=== PATIENT | male | born 2000 | race Caucasian/White ===

== ENCOUNTER 2021-02-18 09:21 | Observation (INO) ==
[2021-02-18] MEDS ORDERED: ceFAZolin 2000MG 2,000 MG/15 ML SYR IV STA (10:23)
[2021-02-18] MEDS ORDERED: metroNIDAZOLE 500 MG/100 ML BAG IV STA (10:23)
[2021-02-18] MEDS ORDERED: methylPREDNISolone 125 MG/2 ML VIAL IV STA (10:28)
--- NOTE | 2021-02-18 10:39 | Emergency Department Note ---
History of Present Illness General Chief complaint: Shortness of Breath/Dyspnea Stated complaint: THROAT SWELLING Time Seen by Provider: 02/18/21 10:10 History of Present Illness Maximum Pain Intensity: 9 This 20-year-old male patient with significant past medical history of acute tonsillitis associated with mononucleosis presents to the emergency department today for evaluation of worsening swelling in his tonsils, change in his voice, and inability to swallow liquids. The patient states symptoms have been ongoing for approximately 1 week. He states he was seen here on Monday when he was diagnosed with mononucleosis. He was seen again on Monday when the ED had CT imaging of his neck to evaluate for abscess. This was negative for abscess but did show lymphadenopathy. At this time, the patient was started on clindamycin as well as prednisone. The patient states he felt better for 1 day, then this morning developed difficulty swallowing, inability to tolerate liquids, and decided to come to the emergency department for reevaluation. The patient is scheduled to see Dr. Hancock as an outpatient tomorrow at 130, but did not feel that he should wait that long due to his worsening symptoms. Patient denies any hemoptysis. No abdominal pain. No nausea, vomiting, weakness. No chest pain or dyspnea. Pt. 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 Home Medications Medication Instructions Recorded Confirmed Type famotidine 40 mg tablet (Pepcid) 40 mg PO HS #30 tab 02/14/21 02/18/21 Rx lisdexamfetamine 30 mg capsule 30 mg PO DAILY PRN 02/14/21 02/18/21 History (Vyvanse) clindamycin HCl 150 mg capsule 300 mg PO Q6H 02/16/21 02/18/21 History (Cleocin HCl) ibuprofen 200 mg tablet (Ibuprofen 200 mg PO Q6H PRN 02/16/21 02/18/21 History IB) naproxen sodium 220 mg tablet 220 mg PO Q12H PRN 02/18/21 02/18/21 History (Aleve) prednisone 20 mg tablet 20 mg PO DIRECTED 02/18/21 02/18/21 History Allergies Allergy/AdvReac Type Severity Reaction Status Date / Time hazelnut Allergy Intermediate Hives Unverified 02/18/21 10:38 Past Med/Surg History Medical History No pertinent past medical history Social History Smoking Status: Former smoker Tobacco Type: Cigarettes Feels Safe at Home: Yes Review of Systems A total of 10 systems reviewed and were otherwise negative Physical Exam Vital Signs Vital Signs - 24 hr 02/18/21 09:24 02/18/21 09:44 02/18/21 10:59 Temperature 36.8 C Temperature Source Oral Pulse Rate 107 H Respiratory Rate 20 Blood Pressure 144/76 H Blood Pressure Mean 98 Pulse Oximetry 97 Oxygen Delivery Method Room Air Room Air Room Air Sepsis Recent Fever Within 48 Hours No Sepsis New/Unexplained Change in Mental Status N/A Sepsis Action Taken by Nursing No Action Required VITALS: Vitals are noted on the nurse's note and reviewed by myself. Vital signs stable. GENERAL: This is a 20-year-old white male, in no acute distress, nondiaphoretic, well-developed well-nourished. SKIN: The skin was without rashes, erythema, edema, or bruising. There is no tenting of the skin. Capillary refill less than 2 seconds. HEAD: Normocephalic atraumatic. EARS: External auditory canals clear, tympanic membranes pearly brenner without erythema or effusion bilaterally. EYES: Conjunctivae without injection, sclerae without icterus. NOSE: Patent, turbinates without inflammation or discharge. No sinus tenderness. MOUTH: Mucous membranes moist. Tonsils are enlarged, erythematous, and exudative. 3+ tonsillar enlargement. Uvula midline. Airway patent. Tongue does not deviate. NECK: Supple without nuchal rigidity. Cervical lymphadenopathy. Cervical spine is nontender. No JVD. HEART: Regular rate and rhythm without murmurs gallops or rubs. LUNGS: Clear to auscultation bilaterally without wheezes, rales or rhonchi. No retractions or accessory muscle use. ABDOMEN: Positive bowel sounds x 4. Soft, nontender, without masses. Spleen tip palpable on examination. No guarding or rebound tenderness. MUSCULOSKELETAL: No muscle atrophy, erythema, or edema noted. Full range of motion without joint tenderness in all extremities. No tenderness to palpation. Normal gait. Strength 5/5 throughout. NEURO: Patient was alert and oriented to person place and time. No focal neurological deficits. Course Course The patient was seen and evaluated as above. Previous medical records reviewed I did consult with Dr. Hancock regarding this patient. He recommends IV antibiotics, steroids, hydration, and admission. He advises NOT to get a repeat CT scan at this time. He does not recommend procedure in this case and suspect the patient will feel better in 1 to 2 days. An order was placed for continuous cardiac monitoring. The monitor shows a sinus tachycardia at a rate of 107 bpm. I discussed the case with the ED pharmacist regarding recommendation for treatment. I discussed the case with the sporting goods sales manager. I discussed the recommendation with the patient at bedside. He was agreeable. IV access obtained, labs drawn. Patient medicated with IV cefazolin, metronidazole, Solu-Medrol. Labs reviewed by myself. I discussed the case with my attending. I discussed the case with the [facility]. They did agree to see and evaluate the patient for admission. Administered Medications Discontinued Medications Acetaminophen (Acetaminophen 1000 Mg/100 Ml Iv) 1,000 mg IV NOW STA Stop: 02/18/21 10:51 Last Admin: 02/18/21 10:56 Dose: 1,000 mg Documented by: [id number] Acetaminophen (Acetaminophen 1000 Mg/100 Ml Iv) Confirm Administered Dose 1,000 mg IV .STK-MED ONE Stop: 02/18/21 10:52 Last Admin: 02/18/21 10:59 Dose: Not Given Documented by: [id number] Cefazolin Sodium (Ancef 2000mg) 2,000 mg in 15 mls @ 3.75 mls/min IV NOW STA Stop: 02/18/21 10:26 Last Admin: 02/18/21 10:56 Dose: 3.75 mls/min Documented by: [id number] Metronidazole (Flagyl) 500 mg in 100 mls @ 100 mls/hr IV NOW STA Stop: 02/18/21 11:22 Last Infusion: 02/18/21 12:58 Dose: 0 mls/hr Documented by: [id number] Admin: 02/18/21 10:56 Dose: 100 mls/hr Documented by: [id number] Methylprednisolone (Methylprednisolone 125 Mg/2 Ml Vial) 60 mg IV NOW STA Stop: 02/18/21 10:29 Last Admin: 02/18/21 10:56 Dose: 60 mg Documented by: [id number] Medical Decision Making Differential Diagnosis Viral syndrome, strep pharyngitis, tonsillitis, mononucleosis, retropharyngeal abscess, peritonsillar abscess, otitis media, sinusitis, bronchitis, pneumonia, COVID-19, as well as other pathologies. Medical Records Attestation: I reviewed the patient's medical records. Home Medications Current Medication List: was personally reviewed by me Laboratory Data Attestation: I reviewed the patient's lab results. Mild leukocytosis of 13,000. No anemia or thrombocytopenia. Renal function and electrolytes without significant abnormality. Transaminases elevated. Procalcitonin 0.06. COVID-19 testing negative. Result diagrams: 02/18/21 11:03 02/18/21 11:03 Lab Results 02/18/21 02/18/21 02/18/21 Range/Units 11:03 11:03 11:03 WBC 13.95 H (4.8-10.8) K/uL RBC 4.68 L (4.7-6.1) M/uL Hgb 14.2 (14.0-18.0) g/dL Hct 42.1 (42-52) % MCV 90.0 (80-100) fL MCH 30.3 (25-34) pg MCHC 33.7 (32-36) g/dL RDW Std Deviation 46.3 (36.4-46.3) fL RDW Coeff of Yaquelin 14.3 (11.5-14.5) % Plt Count 256 (130-400) K/uL MPV 10.1 (7.4-10.4) fL Neutrophils % (Manual) 31.0 % Lymphocytes % (Manual) 8.6 % Reactive Lymphs % (Man) 50.0 % Monocytes % (Manual) 9.5 % Basophils % (Manual) 0.9 % Neutrophils # (Manual) 4.33 (1.4-6.5) K/uL Total Absolute Neuts 4.33 (1.4-6.5) K/uL Lymphocytes # (Manual) 1.20 (1.2-3.4) K/uL Reactive Lymphs # 6.98 K/uL Total Abs Lymphocytes 8.18 H (1.2-3.4) K/uL Monocytes # (Manual) 1.32 H (0.11-0.59) K/uL Basophils # (Manual) 0.12 (0-0.2) K/uL Toxic Vacuolation 1+ Rouleaux 1+ Sodium 140 (136-145) mmol/L Potassium 3.9 (3.5-5.1) mmol/L Chloride 106 (98-107) mmol/L Carbon Dioxide 26 (21-32) mmol/L Anion Gap 8.0 (3-11) BUN 8 (7-18) mg/dl Creatinine 0.88 (0.6-1.4) mg/dl Est Cr Clr Drug Dosing 145.7 ml/min Est GFR ( Amer) 142.3 ml/min Est GFR (Non-Af Amer) 122.8 ml/min BUN/Creatinine Ratio 9.1 L (10-20) Glucose 93 (70-99) mg/dl Calcium 9.0 (8.5-10.1) mg/dl Total Bilirubin 1.1 H (0.2-1) mg/dl AST 111 H (15-37) U/L ALT 433 H (12-78) U/L Alkaline Phosphatase 230 H (45-117) U/L Total Protein 8.5 H (6.4-8.2) gm/dl Albumin 3.9 (3.4-5.0) gm/dl Globulin 4.6 H (2.5-4.0) gm/dl Albumin/Globulin Ratio 0.8 L (0.9-2) Procalcitonin 0.06 (0-0.5) ng/ml Specimen Hemolysis COVID-19 Eval Order SARS-CoV-2 (PCR) (Negative) 02/18/21 02/18/21 Range/Units 11:03 11:03 WBC (4.8-10.8) K/uL RBC (4.7-6.1) M/uL Hgb (14.0-18.0) g/dL Hct (42-52) % MCV (80-100) fL MCH (25-34) pg MCHC (32-36) g/dL RDW Std Deviation (36.4-46.3) fL RDW Coeff of Yaquelin (11.5-14.5) % Plt Count (130-400) K/uL MPV (7.4-10.4) fL Neutrophils % (Manual) % Lymphocytes % (Manual) % Reactive Lymphs % (Man) % Monocytes % (Manual) % Basophils % (Manual) % Neutrophils # (Manual) (1.4-6.5) K/uL Total Absolute Neuts (1.4-6.5) K/uL Lymphocytes # (Manual) (1.2-3.4) K/uL Reactive Lymphs # K/uL Total Abs Lymphocytes (1.2-3.4) K/uL Monocytes # (Manual) (0.11-0.59) K/uL Basophils # (Manual) (0-0.2) K/uL Toxic Vacuolation Rouleaux Sodium (136-145) mmol/L Potassium (3.5-5.1) mmol/L Chloride (98-107) mmol/L Carbon Dioxide (21-32) mmol/L Anion Gap (3-11) BUN (7-18) mg/dl Creatinine (0.6-1.4) mg/dl Est Cr Clr Drug Dosing ml/min Est GFR ( Amer) ml/min Est GFR (Non-Af Amer) ml/min BUN/Creatinine Ratio (10-20) Glucose (70-99) mg/dl Calcium (8.5-10.1) mg/dl Total Bilirubin (0.2-1) mg/dl AST (15-37) U/L ALT (12-78) U/L Alkaline Phosphatase (45-117) U/L Total Protein (6.4-8.2) gm/dl Albumin (3.4-5.0) gm/dl Globulin (2.5-4.0) gm/dl Albumin/Globulin Ratio (0.9-2) Procalcitonin (0-0.5) ng/ml Specimen Hemolysis COVID-19 Eval Order Covid19 at [facility] SARS-CoV-2 (PCR) NEGATIVE (Negative) Imaging Data Radiologist's Impression: CT neck (2 days prior): 1. Marked enlargement with heterogeneity of the palatine tonsils compatible with acute tonsillitis resulting in moderate oropharyngeal narrowing. No peritonsillar abscess. 2. Prominent and pathologically enlarged cervical chain lymph nodes, likely secondary to the patient's mononucleosis diagnosis. Follow-up recommended. Blood Pressure Blood Pressure Findings: Elevated blood pressure MDM Narrative This 20-year-old male patient presents to the emergency department today for evaluation of ongoing sore throat, difficulty swallowing in the setting of mononucleosis. The patient is afebrile. On initial evaluation, the patient is tachycardic. He was afebrile. He was hydrated with IV fluids. I did consult with the ENT who recommends no repeat CT scanning, but did encourage admission/observation for supportive care, IV antibiotics, and steroids. He did see and evaluate the patient and does not recommend surgery at this time. The patient was agreeable. Pt. was started on IV antibiotics and fluids. He will be admitted to the hospitalist service. Please see hospitalist dictation regarding ongoing management and care of this patient. The chart was completed utilizing [employer] Speech voice recognition software. Grammatical errors, random word insertions, pronoun errors, and incomplete sentences are an occasional consequence of this system due to software limitations, ambient noise, and hardware issues. Any formal questions or concerns about the content, text, or information contained within the body of this dictation should be directly addressed to the provider for clarification. Impression & Plan Mononucleosis, Acute tonsillitis Discharge Plan Visit Data Chief Complaint: Shortness of Breath/Dyspnea Stated Complaint: THROAT SWELLING ED Provider: [facility] ED Midlevel Provider: Divya Lopez Discharge Problem: Mononucleosis, Acute tonsillitis Patient Disposition: Admitted As Inpatient Condition: Good
[2021-02-18] MEDS ORDERED: ACETAMINOPHEN 1000 MG/100 ML IV IV STA (10:50)
[2021-02-18] MEDS ORDERED: ACETAMINOPHEN 1000 MG/100 ML IV IV ONE (10:51)
--- NOTE | 2021-02-18 11:50 | History & Physical Report ---
Date of Service February 18, 2021 Assessment & Plan (1) Acute tonsillitis: Plan: 20 y/o M with no significant medical history. Presents with throat pain and dysphagia for the 3rd time this week. He was diagnosed with mono. A CT of the neck demonstrated marked enlargement with of the tonsils due to acute tonsillitis resulting in moderate oropharyngeal narrowing. Labs are notable for leukocytosis and transaminitis. As he is unable to swallow and has partial airway compromise, he will be admitted for monitoring and IV treatment. The pt will be placed on IVF, IV steroids, PRN ketorolac and Ofirmev. ENT consulted. He is placed on telemetry for airway monitoring. Full code - ambulatory Total time for this admit including review of labs, meds imaging, records - discussion with pt and ER attending - 35 min (2) Mononucleosis: History of Present Illness Chief Complaint: Throat pain Primary Care Provider: [facility] 20 y/o M with no significant medical history. Presents with throat pain and dysphagia for the 3rd time this week. He was diagnosed with mono. A CT of the neck demonstrated marked enlargement with of the tonsils due to acute tonsillitis resulting in moderate oropharyngeal narrowing. Labs are notable for leukocytosis and transaminitis. As he is unable to swallow and has partial airway compromis, he will be admitted for monitoring and IV treatment. PMH: Denies Surgical: Denies Social: Quit smoking 2-3 months ago. Does not drink alcohol. 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 Family: Both parents alive and well Allergies Allergy/AdvReac Type Severity Reaction Status Date / Time hazelnut Allergy Intermediate Hives Unverified 02/18/21 10:38 Home Medications Medication Instructions Recorded Confirmed Type famotidine 40 mg tablet (Pepcid) 40 mg PO HS #30 tab 02/14/21 02/18/21 Rx lisdexamfetamine 30 mg capsule 30 mg PO DAILY PRN 02/14/21 02/18/21 History (Vyvanse) clindamycin HCl 150 mg capsule 300 mg PO Q6H 02/16/21 02/18/21 History (Cleocin HCl) ibuprofen 200 mg tablet (Ibuprofen 200 mg PO Q6H PRN 02/16/21 02/18/21 History IB) naproxen sodium 220 mg tablet 220 mg PO Q12H PRN 02/18/21 02/18/21 History (Aleve) prednisone 20 mg tablet 20 mg PO DIRECTED 02/18/21 02/18/21 History Past Med/Surg History Medical History No pertinent past medical history Social History Smoking Status: Former smoker Tobacco Type: Cigarettes Feels Safe at Home: Yes Review of Systems Review of Systems: Gen: No recent fever ENT: Throat pain - cannot swallow solids Eyes: Denies acute visual changes CV: Denies CP, palpitations Pulmonary: Denies SOB, cough, wheezing GI: Denies N/V, diarrhea, constipation Neuro: Denies acute or unilateral weakness, acute gait impairment, headache or acute visual changes Musculoskeletal: Denies joint pain, inflammation Endocrine: Denies polydipsia, polyuria Skin: Denies acute rashes or ulcers Physical Exam Physical Exam: General: AAO x 3, no distress ENT: Significant erythema and exudates or secretions and food over tonsils and pahrynx Eyes: BLAYNE, EOMI Head and neck: Normocephalic, atraumatic, No JVD, neck is supple. Chest/heart: Nontender, S1,2, RRR, no murmurs, no gallops. Lungs: CTAB, no wheezing or crackles Abdomen: There may be a palpable spleen Neuro: AAO x 3, speech is clear, no unilateral weakness or loss of sensation, coordination intact Musculoskeletal: No joint inflammation, muscle tenderness, FROM Skin: No acute rashes or ulcers Extremities: No clubbing, cyanosis, edema Results & Data Results & Data ([facility]) Vital Signs (Past 12 Hours) Vital Signs Temp Pulse Resp BP Pulse Ox 02/18/21 09:24 98.2 F 107 H 20 144/[address] neck: 1. Marked enlargement with heterogeneity of the palatine tonsils compatible with acute tonsillitis resulting in moderate oropharyngeal narrowing. No peritonsillar abscess. 2. Prominent and pathologically enlarged cervical chain lymph nodes, likely secondary to the patient's mononucleosis diagnosis. Follow-up recommended. Code Status & VTE Plan VTE Prophylaxis Plan VTE Prophylaxis will be ordered: No PG Care Time/CCT Total # of Minutes Spent Total Time Spent with Patient: Total time spent is greater than 50% in coordination of care (as documented) at patient's floor/unit and/or counseling patient: Coding Level of Care Code INT OBSERVATION CARE 70M LVL 3 Diagnoses Acute tonsillitis J03.80; B27.90 Pharyngitis/tonsillitis etiology: infectious mononucleosis Mononucleosis B27.90 Infectious mononucleosis complication: without complication Infectious mononucleosis etiology: unspecified organism (1) Acute tonsillitis Pharyngitis/tonsillitis etiology: infectious mononucleosis Qualified Code(s): J03.80 - Acute tonsillitis due to other specified organisms; B27.90 - Infectious mononucleosis, unspecified without complication (2) Mononucleosis Infectious mononucleosis complication: without complication Infectious mononucleosis etiology: unspecified organism Qualified Code(s): B27.90 - Infectious mononucleosis, unspecified without complication
[2021-02-18 11:55] LABS: Albumin Globulin Ratio 0.8 (0.9-2); Albumin Level 3.9 gm/dl (3.4-5.0); BUN Creatinine Ratio 9.1 (10-20); Bilirubin,Total 1.1 mg/dl (0.2-1); Creatinine Clr Calc Pharmacy 145.7 ml/min; Est GFR (African American) 142.3 ml/min; Est GFR (Non-African American) 122.8 ml/min; Globulin 4.6 gm/dl (2.5-4.0); Potassium 3.9 mmol/L (3.5-5.1); Total Protein 8.5 gm/dl (6.4-8.2)
[2021-02-18 12:18] LABS: Hematocrit (blood only) 42.1 % (42-52); Hemoglobin 14.2 g/dL (14.0-18.0); Mean Corpuscular Hemoglobin 30.3 pg (25-34); Mean Corpuscular Hgb Conc 33.7 g/dL (32-36); Mean Platelet Volume 10.1 fL (7.4-10.4); Platelet Count 256 K/uL (130-400); RDW Coefficient of Variation 14.3 % (11.5-14.5); RDW Standard Deviation 46.3 fL (36.4-46.3); Red Blood Count 4.68 M/uL (4.7-6.1); White Blood Count 13.95 K/uL (4.8-10.8)
[2021-02-18 12:24] LABS: Rouleaux 1+; Toxic Vacuolation 1+
[2021-02-18 12:31] LABS: ALC (manual) 8.18 K/uL (1.2-3.4); ANC (manual) 4.33 K/uL (1.4-6.5); Basophils # (manual) 0.12 K/uL (0-0.2); Basophils % (manual) 0.9 %; Lymphocytes % (manual) 8.6 %; Monocytes # (manual) 1.32 K/uL (0.11-0.59); Monocytes % (manual) 9.5 %; Neutrophils # (manual) 4.33 K/uL (1.4-6.5); Reactive Lymphocytes # (manual) 6.98 K/uL
--- NOTE | 2021-02-18 14:22 | ENT Consultation ---
Date of Consultation February 18, 2021 Assessment & Plan (1) Mononucleosis: Agree with medical agree with medical management (2) Acute tonsillitis: No sign of abscess, no surgical intervention needed. History of Present Illness Reason for Consultation: Infectious mono. History of Present Illness This 20-year-old developed sore throat and pain right-sided throat with exudate on both tonsils. His Monospot was positive. Liver enzymes are elevated. Allergies Allergy/AdvReac Type Severity Reaction Status Date / Time hazelnut Allergy Intermediate Hives Unverified 02/18/21 10:38 Home Medications Medication Instructions Recorded Confirmed Type famotidine 40 mg tablet (Pepcid) 40 mg PO HS #30 tab 02/14/21 02/18/21 Rx lisdexamfetamine 30 mg capsule 30 mg PO DAILY PRN 02/14/21 02/18/21 History (Vyvanse) clindamycin HCl 150 mg capsule 300 mg PO Q6H 02/16/21 02/18/21 History (Cleocin HCl) ibuprofen 200 mg tablet (Ibuprofen 200 mg PO Q6H PRN 02/16/21 02/18/21 History IB) naproxen sodium 220 mg tablet 220 mg PO Q12H PRN 02/18/21 02/18/21 History (Aleve) prednisone 20 mg tablet 20 mg PO DIRECTED 02/18/21 02/18/21 History Patient History Medical History No pertinent past medical history Social History Smoking Status: Former smoker Tobacco Type: Cigarettes Feels Safe at Home: Yes Physical Exam Constitutional: WD/WN, vitals as above (In no acute distress, pleasant cooperative, not drooling, no trismus) Eyes: PERRL, conjunctivae normal, anicteric sclerae ENMT: external ear and nose normal, oropharynx normal Throat: + tonsil abnormality (4+ tonsils, with exudate, consistent with mono) Neck: Shotty adenopathy Respiratory: normal respiratory effort, lungs clear to auscultation Cardiovascular: RRR, no murmur, no edema Gastrointestinal (Abdomen): Palpable spleen tip Results & Data ([facility]) Vital Signs (Past 12 Hours) Vital Signs Temp Pulse Resp BP Pulse Ox 02/18/21 09:24 36.8 C 107 H 20 144/76 H 97 Laboratory Results Positive mono, elevated liver enzymes, positive Monospot Diagnostic Findings CT neck reviewed, tonsillar hypertrophy, no sign of abscess (1) Mononucleosis Infectious mononucleosis complication: without complication Infectious mononucleosis etiology: unspecified organism Qualified Code(s): B27.90 - Infectious mononucleosis, unspecified without complication (2) Acute tonsillitis Pharyngitis/tonsillitis etiology: infectious mononucleosis Qualified Code(s): J03.80 - Acute tonsillitis due to other specified organisms; B27.90 - Infectious mononucleosis, unspecified without complication
[2021-02-18] MEDS: D5NSS + 20MEQ KCL 20 MEQ/1,000 ML BAG IV SCH ×2 (17:52→20:32)
[2021-02-18] MEDS: methylPREDNISolone 20 MG in SYRINGE 0 ML IV SCH (20:35)
[2021-02-18] MEDS: KETOROLAC TROMETHAMINE 15 MG/ML VIAL IV PRN (22:55)
[2021-02-18] MEDS ORDERED: CALCIUM CARBONATE 500 MG CHEWABLE TAB PO PRN (23:07)
[2021-02-19] MEDS: D5NSS + 20MEQ KCL 20 MEQ/1,000 ML BAG IV SCH (02:43)
[2021-02-19 05:53] LABS: Hematocrit (blood only) 38.3 % (42-52); Hemoglobin 13.2 g/dL (14.0-18.0); Mean Corpuscular Hemoglobin 30.8 pg (25-34); Mean Corpuscular Hgb Conc 34.5 g/dL (32-36); Mean Corpuscular Volume 89.5 fL (80-100); Mean Platelet Volume 9.4 fL (7.4-10.4); Platelet Count 239 K/uL (130-400); RDW Coefficient of Variation 14.2 % (11.5-14.5); RDW Standard Deviation 45.7 fL (36.4-46.3); Red Blood Count 4.28 M/uL (4.7-6.1); White Blood Count 11.56 K/uL (4.8-10.8)
[2021-02-19 06:11] LABS: Alanine Aminotransferase 278 U/L (12-78); Albumin Level 3.2 gm/dl (3.4-5.0); Aspartate Aminotransferase 54 U/L (15-37); BUN Creatinine Ratio 13.3 (10-20); Bilirubin Direct 0.2 mg/dl (0-0.2); Blood Urea Nitrogen 10 mg/dl (7-18); Calcium 8.7 mg/dl (8.5-10.1); Carbon Dioxide 26 mmol/L (21-32); Chloride 108 mmol/L (98-107); Creatinine Clr Calc Pharmacy 178.1 ml/min; Est GFR (African American) > 150.0 ml/min; Est GFR (Non-African American) 133.3 ml/min; Glucose 128 mg/dl (70-99); Magnesium 2.5 mg/dl (1.8-2.4); Potassium 4.4 mmol/L (3.5-5.1); Sodium 140 mmol/L (136-145)
[2021-02-19 06:14] LABS: Alkaline Phosphatase 181 U/L (45-117); Bilirubin,Total 0.9 mg/dl (0.2-1); Total Protein 7.2 gm/dl (6.4-8.2)
[2021-02-19 06:28] LABS: ALC (manual) 6.74 K/uL (1.2-3.4); ANC (manual) 3.21 K/uL (1.4-6.5); Basophils % (manual) 0.9 %; Lymphocytes # (manual) 1.61 K/uL (1.2-3.4); Lymphocytes % (manual) 13.9 %; Metamyelocytes % (manual) 1.7 %; Monocytes # (manual) 1.31 K/uL (0.11-0.59); Monocytes % (manual) 11.3 %; Neutrophils # (manual) 3.21 K/uL (1.4-6.5); Neutrophils % (manual) 27.8 %; Reactive Lymphocytes # (manual) 5.13 K/uL; Reactive Lymphocytes % (manual) 44.4 %
--- NOTE | 2021-02-19 08:05 | Hospitalist Progress Note ---
Date of Service February 19, 2021 Assessment & Plan (1) Acute tonsillitis: Plan: 20 y/o M with no significant medical history. Presents with throat pain and dysphagia for the 3rd time this week. He was diagnosed with mono. A CT of the neck demonstrated marked enlargement with of the tonsils due to acute tonsillitis resulting in moderate oropharyngeal narrowing. Labs are notable for leukocytosis and transaminitis. As he is unable to swallow and has partial airway compromise, he will be admitted for monitoring and IV treatment. The pt will be placed on IVF, IV steroids, PRN ketorolac and Ofirmev. ENT consulted. He is placed on telemetry for airway monitoring. Full code - ambulatory Total time for this admit including review of labs, meds imaging, records - discussion with pt and ER attending - 35 min Admission and Anticipated Discharge Date Admission Date: February 18, 2021 Results & Data Results & Data ([facility]) Vital Signs (Past 12 Hours) Vital Signs Temp Pulse Resp BP Pulse Ox 02/19/21 04:34 37 C 47 L 16 128/58 L 99 02/18/21 23:49 37 C 59 L 16 144/59 H 96 Laboratory Results 02/19/21 02/19/21 02/18/21 Range/Units 05:33 05:33 11:03 WBC 11.56 H (4.8-10.8) K/uL RBC 4.28 L (4.7-6.1) M/uL Hgb 13.2 L (14.0-18.0) g/dL Hct 38.3 L (42-52) % MCV 89.5 (80-100) fL MCH 30.8 (25-34) pg MCHC 34.5 (32-36) g/dL RDW Std Deviation 45.7 (36.4-46.3) fL RDW Coeff of Yaquelin 14.2 (11.5-14.5) % Plt Count 239 (130-400) K/uL MPV 9.4 (7.4-10.4) fL Neutrophils % (Manual) 27.8 % Lymphocytes % (Manual) 13.9 % Reactive Lymphs % (Man) 44.4 % Monocytes % (Manual) 11.3 % Basophils % (Manual) 0.9 % Metamyelocytes % (Man) 1.7 % Neutrophils # (Manual) 3.21 (1.4-6.5) K/uL Total Absolute Neuts 3.21 (1.4-6.5) K/uL Lymphocytes # (Manual) 1.61 (1.2-3.4) K/uL Reactive Lymphs # 5.13 K/uL Total Abs Lymphocytes 6.74 H (1.2-3.4) K/uL Monocytes # (Manual) 1.31 H (0.11-0.59) K/uL Basophils # (Manual) 0.10 (0-0.2) K/uL Metamyelocytes # (Man) 0.20 H (0-0) K/uL Toxic Vacuolation Rouleaux Sodium 140 (136-145) mmol/L Potassium 4.4 (3.5-5.1) mmol/L Chloride 108 H (98-107) mmol/L Carbon Dioxide 26 (21-32) mmol/L Anion Gap 6.0 (3-11) BUN 10 (7-18) mg/dl Creatinine 0.72 (0.6-1.4) mg/dl Est Cr Clr Drug Dosing 178.1 ml/min Est GFR ( Amer) > 150.0 ml/min Est GFR (Non-Af Amer) 133.3 ml/min BUN/Creatinine Ratio 13.3 (10-20) Glucose 128 H (70-99) mg/dl Calcium 8.7 (8.5-10.1) mg/dl Magnesium 2.5 H (1.8-2.4) mg/dl Total Bilirubin 0.9 (0.2-1) mg/dl Direct Bilirubin 0.2 (0-0.2) mg/dl AST 54 H (15-37) U/L ALT 278 H (12-78) U/L Alkaline Phosphatase 181 H (45-117) U/L Total Protein 7.2 (6.4-8.2) gm/dl Albumin 3.2 L (3.4-5.0) gm/dl Globulin (2.5-4.0) gm/dl Albumin/Globulin Ratio (0.9-2) Procalcitonin (0-0.5) ng/ml Specimen Hemolysis COVID-19 Eval Order SARS-CoV-2 (PCR) NEGATIVE (Negative) 02/18/21 02/18/21 02/18/21 Range/Units 11:03 11:03 11:03 WBC (4.8-10.8) K/uL RBC (4.7-6.1) M/uL Hgb (14.0-18.0) g/dL Hct (42-52) % MCV (80-100) fL MCH (25-34) pg MCHC (32-36) g/dL RDW Std Deviation (36.4-46.3) fL RDW Coeff of Yaquelin (11.5-14.5) % Plt Count (130-400) K/uL MPV (7.4-10.4) fL Neutrophils % (Manual) % Lymphocytes % (Manual) % Reactive Lymphs % (Man) % Monocytes % (Manual) % Basophils % (Manual) % Metamyelocytes % (Man) % Neutrophils # (Manual) (1.4-6.5) K/uL Total Absolute Neuts (1.4-6.5) K/uL Lymphocytes # (Manual) (1.2-3.4) K/uL Reactive Lymphs # K/uL Total Abs Lymphocytes (1.2-3.4) K/uL Monocytes # (Manual) (0.11-0.59) K/uL Basophils # (Manual) (0-0.2) K/uL Metamyelocytes # (Man) (0-0) K/uL Toxic Vacuolation Rouleaux Sodium 140 (136-145) mmol/L Potassium 3.9 (3.5-5.1) mmol/L Chloride 106 (98-107) mmol/L Carbon Dioxide 26 (21-32) mmol/L Anion Gap 8.0 (3-11) BUN 8 (7-18) mg/dl Creatinine 0.88 (0.6-1.4) mg/dl Est Cr Clr Drug Dosing 145.7 ml/min Est GFR ( Amer) 142.3 ml/min Est GFR (Non-Af Amer) 122.8 ml/min BUN/Creatinine Ratio 9.1 L (10-20) Glucose 93 (70-99) mg/dl Calcium 9.0 (8.5-10.1) mg/dl Magnesium (1.8-2.4) mg/dl Total Bilirubin 1.1 H (0.2-1) mg/dl Direct Bilirubin (0-0.2) mg/dl AST 111 H (15-37) U/L ALT 433 H (12-78) U/L Alkaline Phosphatase 230 H (45-117) U/L Total Protein 8.5 H (6.4-8.2) gm/dl Albumin 3.9 (3.4-5.0) gm/dl Globulin 4.6 H (2.5-4.0) gm/dl Albumin/Globulin Ratio 0.8 L (0.9-2) Procalcitonin 0.06 (0-0.5) ng/ml Specimen Hemolysis COVID-19 Eval Order Covid19 at [facility] SARS-CoV-2 (PCR) (Negative) 02/18/21 Range/Units 11:03 WBC 13.95 H (4.8-10.8) K/uL RBC 4.68 L (4.7-6.1) M/uL Hgb 14.2 (14.0-18.0) g/dL Hct 42.1 (42-52) % MCV 90.0 (80-100) fL MCH 30.3 (25-34) pg MCHC 33.7 (32-36) g/dL RDW Std Deviation 46.3 (36.4-46.3) fL RDW Coeff of Yaquelin 14.3 (11.5-14.5) % Plt Count 256 (130-400) K/uL MPV 10.1 (7.4-10.4) fL Neutrophils % (Manual) 31.0 % Lymphocytes % (Manual) 8.6 % Reactive Lymphs % (Man) 50.0 % Monocytes % (Manual) 9.5 % Basophils % (Manual) 0.9 % Metamyelocytes % (Man) % Neutrophils # (Manual) 4.33 (1.4-6.5) K/uL Total Absolute Neuts 4.33 (1.4-6.5) K/uL Lymphocytes # (Manual) 1.20 (1.2-3.4) K/uL Reactive Lymphs # 6.98 K/uL Total Abs Lymphocytes 8.18 H (1.2-3.4) K/uL Monocytes # (Manual) 1.32 H (0.11-0.59) K/uL Basophils # (Manual) 0.12 (0-0.2) K/uL Metamyelocytes # (Man) (0-0) K/uL Toxic Vacuolation 1+ Rouleaux 1+ Sodium (136-145) mmol/L Potassium (3.5-5.1) mmol/L Chloride (98-107) mmol/L Carbon Dioxide (21-32) mmol/L Anion Gap (3-11) BUN (7-18) mg/dl Creatinine (0.6-1.4) mg/dl Est Cr Clr Drug Dosing ml/min Est GFR ( Amer) ml/min Est GFR (Non-Af Amer) ml/min BUN/Creatinine Ratio (10-20) Glucose (70-99) mg/dl Calcium (8.5-10.1) mg/dl Magnesium (1.8-2.4) mg/dl Total Bilirubin (0.2-1) mg/dl Direct Bilirubin (0-0.2) mg/dl AST (15-37) U/L ALT (12-78) U/L Alkaline Phosphatase (45-117) U/L Total Protein (6.4-8.2) gm/dl Albumin (3.4-5.0) gm/dl Globulin (2.5-4.0) gm/dl Albumin/Globulin Ratio (0.9-2) Procalcitonin (0-0.5) ng/ml Specimen Hemolysis COVID-19 Eval Order SARS-CoV-2 (PCR) (Negative) PG Care Time/CCT Total # of Minutes Spent Total Time Spent with Patient: Total time spent is greater than 50% in coordination of care (as documented) at patient's floor/unit and/or counseling patient: Coding Diagnoses Acute tonsillitis J03.90 Pharyngitis/tonsillitis etiology: unspecified etiology (1) Acute tonsillitis Pharyngitis/tonsillitis etiology: unspecified etiology Qualified Code(s): J03.90 - Acute tonsillitis, unspecified
[2021-02-19] MEDS: KETOROLAC TROMETHAMINE 15 MG/ML VIAL IV PRN (09:22)
[2021-02-19] MEDS: methylPREDNISolone 20 MG in SYRINGE 0 ML IV SCH (10:24)
--- NOTE | 2021-02-19 10:31 | Ears,Nose,Throat Progress Note ---
Date of Service February 19, 2021 Assessment & Plan (1) Mononucleosis: Plan: Improved (2) Acute tonsillitis: Plan: Improved. Regular diet. Resume normal activity except no contact sports for 6 weeks. Admission and Anticipated Discharge Date Admission Date: February 18, 2021 Subjective Feels much better than yesterday. Tolerating diet. No pain or sore throat today. Physical Exam Constitutional: WD/WN, vitals as above Eyes: PERRL, conjunctivae normal, anicteric sclerae ENMT: Mouth: + oropharynx abnormality (Tonsils still much enlarged with exudate, not touching uvula today) Neck: Shotty adenopathy Gastrointestinal (Abdomen): Spleen not palpable today Results & Data ([facility]) Vital Signs (Past 12 Hours) Vital Signs Temp Pulse Resp BP Pulse Ox 02/19/21 04:34 37 C 47 L 16 128/58 L 99 02/18/21 23:49 37 C 59 L 16 144/59 H 96 (1) Mononucleosis Infectious mononucleosis complication: without complication Infectious mononucleosis etiology: unspecified organism Qualified Code(s): B27.90 - Infectious mononucleosis, unspecified without complication (2) Acute tonsillitis Pharyngitis/tonsillitis etiology: unspecified etiology Qualified Code(s): J03.90 - Acute tonsillitis, unspecified
--- NOTE | 2021-02-19 13:17 | Discharge Summary ---
Date of Service February 19, 2021 Admission HPI Per Admitting Provider 20 y/o M with no significant medical history. Presents with throat pain and dysphagia for the 3rd time this week. He was diagnosed with mono. A CT of the neck demonstrated marked enlargement with of the tonsils due to acute tonsillitis resulting in moderate oropharyngeal narrowing. Labs are notable for leukocytosis and transaminitis. As he is unable to swallow and has partial airway compromis, he will be admitted for monitoring and IV treatment. PMH: Denies Surgical: Denies Social: Quit smoking 2-3 months ago. Does not drink alcohol. 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 Family: Both parents alive and well Admission Exam Per Admitting Provider General: AAO x 3, no distress ENT: Significant erythema and exudates or secretions and food over tonsils and pahrynx Eyes: BLAYNE, EOMI Head and neck: Normocephalic, atraumatic, No JVD, neck is supple. Chest/heart: Nontender, S1,2, RRR, no murmurs, no gallops. Lungs: CTAB, no wheezing or crackles Abdomen: There may be a palpable spleen Neuro: AAO x 3, speech is clear, no unilateral weakness or loss of sensation, coordination intact Musculoskeletal: No joint inflammation, muscle tenderness, FROM Skin: No acute rashes or ulcers Extremities: No clubbing, cyanosis, edema Principal Diagnosis [place], Tonsilitis Discharge Exam Constitutional WD/WN, vitals as above Eyes PERRL, conjunctivae normal, anicteric sclerae ENMT external ear and nose normal, oropharynx normal Mouth: + oropharynx abnormality (Tonsils still much enlarged with exudate, not touching uvula today) Throat: + tonsil abnormality (4+ tonsils, with exudate, consistent with mono) Respiratory normal respiratory effort, lungs clear to auscultation Cardiovascular RRR, no murmur, no edema Gastrointestinal (Abdomen) +BS throughout, non-tender, no palpation of spleen given mono Musculoskeletal no cyanosis or clubbing, extremities motor strength 5/5 Skin warm, dry Neurologic PERRL, EOMI, accommodation nl, no face palsy, no dysarthria Psychiatric A+Ox3, euthymic affect Lymphatic + cervical lymphadenopathy Discharge Data Allergies Allergy/AdvReac Type Severity Reaction Status Date / Time hazelnut Allergy Intermediate Hives Unverified 02/18/21 10:38 Consultations 02/18/21 10:45 ED Decision to Admit Stat 02/18/21 11:44 Consult Otolaryngology (Head and Neck) Routine Hospital Course (1) Acute tonsillitis: 20 y/o M with no significant medical history. Presented with throat pain and dysphagia for the 3rd time this week. Recent dx with mono. CT of the neck demonstrated marked enlargement with of the tonsils due to acute tonsillitis resulting in moderate oropharyngeal narrowing. Labs are notable for leukocytosis and transaminitis--> improved Initially unable to swallow and has partial airway compromise, and was started on methylprednisolone IV with improvement and was discharged on prednisone taper after discussion with Dr. Hancock in reevaluation patient had ability to clear secretions and advancement of diet to regular and was tolerating without issue Pain control with Toradol Tylenol held given elevation of LFTs Patient to continue ibuprofen as needed for pain control discharge instructed to limit to less than 2400 mg 24 hours. Been utilizing 600 mg daily prior to admission for pain. Patient was instructed to avoid any contact sports for approximately 6 weeks for risk of splenic rupture with mono He has follow-up with S on Monday should have repeat LFTs to ensure normalization Total Time Total Time Spent Total Time Spent (In Minutes): 35 Discharge Plan Discharge Items Patient Disposition: Home - Self-Care Reason For Visit: LARYNGITIS Discharge Diagnosis: [place], Tonsillitis Condition on Discharge: Good Goals: You have been hospitalized for an acute medical problem. During your stay at [facility], we have made an effort to correct the problem that brought you to the hospital while keeping you as comfortable as possible. Medications were used to bring your condition under control and your discharge instructions will include directions for any medications you should take after leaving the hospital. Please make sure you see your Primary Care Provider as part of your follow up plan. Activity: As commented below Activity Comment: no contact sports 6 weeks Non-emergency contact: Primary Care Provider Call non-emergency contact if: you have any medication questions, your symptoms worsen, your pain is not controlled and you have a fever Follow-up/Referrals: [facility] [Primary Care Provider] - Diet: Regular Addtl Attending Provider Instructions: You have been hospitalized for mono/tonsillitis. ENT was consulted, and felt conservative treatment warranted. No abscess was identified on imaging thankfully, and no need for continued antibiotics at discharge. You will be continued on a steroid taper at discharge. You can continue ibuprofen as needed, as discussed, but avoid utilizing over 2400mg in a 24 hour period of time. You should continue to abstain from alcohol for a month at least. No contact sports for 6 weeks. Regular diet as tolerated. You should follow up with S to monitor your progress and have repeat lab testing to ensure liver enzymes resolved in next 1-2 weeks. You should return if any worsening swallowing, shortness of breath, drainage, inability to keep up with oral intake, or for any other symptoms that are concerning for you. It has been a pleasure being a part of the medical team providing for you while you have been in the hospital. Take care! Pending Studies at Discharge: No Stand-Alone Forms: My [facility], Work/School Release Medications and DC Order Prescriptions: New prednisone 20 mg tablet See Rx Instructions .ROUTE .COMPLEX Qty: 56 RF: 0 Continued Vyvanse 30 mg capsule 30 mg PO DAILY PRN (Reason: during school) RF: 0 famotidine [Pepcid] 40 mg tablet 40 mg PO HS Qty: 30 RF: 0 ibuprofen [Ibuprofen IB] 200 mg Tablet 200 mg PO Q6H PRN (Reason: Pain) RF: 0 Discontinued naproxen sodium [Aleve] 220 mg Tablet 220 mg PO Q12H PRN (Reason: Pain) RF: 0 prednisone 20 mg tablet 20 mg PO DIRECTED RF: 0 clindamycin HCl [Cleocin HCl] 150 mg capsule 300 mg PO Q6H RF: 0 Discharge Orders: Discharge Order (Routine); Ordered 02/19/21 Ordered By: Alexa Barillas Admission Data Admit Date/Time: 02/18/21 11:37 Attending Provider: Broderick Gonzalez Admit Provider: Maco Fulton Primary Care Provider: [facility] Other Providers: Mackenzie Hancock ; Maco Fulton Other Interventions: Discharge Summary Assessment (RN) Last Done: 02/19/21 13:30 Coding Level of Care Code 04176 OBS Care - Discharge Diagnoses Acute tonsillitis J03.90 Pharyngitis/tonsillitis etiology: unspecified etiology
== END 2021-02-19 14:07 | disposition home or self-care (01) ==
LOC: ED 09:21 → EDINP 09:21 → SUATTDRO 11:37 → EDINP 16:23
DX: J03.80 Acute tonsillitis due to other specified organisms; Z79.899 Other long term (current) drug therapy; B27.90 Infectious mononucleosis, unspecified without complication; Z87.891 Personal history of nicotine dependence